=== PATIENT | female | born 1985 | race Hispanic/Latino ===

== ENCOUNTER 2021-10-04 08:58 | Outpatient (CLI) | payer SELFPAY ==
[2021-10-04 11:19] LABS: Hemoglobin 14.6 g/dL (12.0-15.5); Mean Corpuscular Hemoglobin 29.9 pg (27.0-33.0); Mean Corpuscular Volume 88.1 fl (81.6-98.3); Mean Platelet Volume 10.5 fl (7.4-10.4); Platelet Count 289 10x3/uL (150-450); Red Blood Cell (RBC) Count 4.88 10x6/uL (3.90-5.03); White Blood Cell (WBC) Count 8.3 10x3/uL (3.5-10.5)
[2021-10-04 12:08] LABS: BHCG - Serum Negative (NEGATIVE); Pregs Control Background? CLEAR/WHITE (CLR/WHITE); Pregs Control Bar Appear? YES (CONTROL BAR)
[2021-10-04 12:17] LABS: Anion Gap 14 mmol/L (10-20); BUN (Urea Nitrogen) 20 mg/dL (7.0-18.7); Calc. Creatinine Clearance 0 mL/min (70-130); Calcium 9.3 mg/dL (7.8-10.44); Carbon Dioxide 26 mmol/L (22-29); Chloride 100 mmol/L (98-107); Glucose 280 mg/dL (70-105); Potassium 4.2 mmol/L (3.5-5.1); Sodium 136 mmol/L (136-145)
[2021-10-04 23:06] LABS: SARS-CoV-2 PCR by NAA Not Detected (NotDetected)
== END 2021-10-04 08:59 | disposition home or self-care (01) ==
LOC: CSHLAB 08:58
PROVIDERS: ATTEND Student in an Organized Health Care Education/Training Program
DX: Z01.812 Encounter for preprocedural laboratory examination (principal); Z20.822 Contact with and (suspected) exposure to COVID-19; R19.00 Intra-abdominal and pelvic swelling, mass and lump, unspecified site; N91.2 Amenorrhea, unspecified
CPT/HCPCS: 80048; 84703; 85027; 86850; 86900; 86901; U0003; U0005

== ENCOUNTER 2021-10-09 10:48 | Day surgery (SDC) | payer OTHER, SELFPAY ==
[2021-10-04 09:15] VITALS: BMI 35.3
[2021-10-04 11:19] LABS: Hemoglobin 14.6 g/dL (12.0-15.5); Mean Corpuscular Hemoglobin 29.9 pg (27.0-33.0); Mean Corpuscular Volume 88.1 fl (81.6-98.3); Mean Platelet Volume 10.5 fl (7.4-10.4); Platelet Count 289 10x3/uL (150-450); Red Blood Cell (RBC) Count 4.88 10x6/uL (3.90-5.03); White Blood Cell (WBC) Count 8.3 10x3/uL (3.5-10.5)
[2021-10-04 12:08] LABS: BHCG - Serum Negative (NEGATIVE); Pregs Control Background? CLEAR/WHITE (CLR/WHITE); Pregs Control Bar Appear? YES (CONTROL BAR)
[2021-10-04 12:17] LABS: Anion Gap 14 mmol/L (10-20); BUN (Urea Nitrogen) 20 mg/dL (7.0-18.7); Calc. Creatinine Clearance 0 mL/min (70-130); Calcium 9.3 mg/dL (7.8-10.44); Carbon Dioxide 26 mmol/L (22-29); Chloride 100 mmol/L (98-107); Glucose 280 mg/dL (70-105); Potassium 4.2 mmol/L (3.5-5.1); Sodium 136 mmol/L (136-145)
[2021-10-04 23:06] LABS: SARS-CoV-2 PCR by NAA Not Detected (NotDetected)
[2021-10-09] MEDS ORDERED: CeleCOXIB 100 MG CAP ONE (11:13)
[2021-10-09] MEDS ORDERED: Gabapentin 300 MG CAP ONE (11:13)
[2021-10-09] MEDS ORDERED: Lidocaine 1% MPF 2 ML VIAL ONE (11:13)
[2021-10-09] MEDS ORDERED: Famotidine/PF 20 mg/2ml Vial ONE (11:14)
[2021-10-09] MEDS ORDERED: Insulin Regular 300 UNITS/3 ML VIAL ONE (11:49)
[2021-10-09] MEDS ORDERED: EPINEPHrine 1 MG/ML AMP ONE (12:02)
[2021-10-09] MEDS ORDERED: Bupivacaine PF 0.5% 30 ML VIAL ONE (12:02)
[2021-10-09] MEDS ORDERED: PROPOFOL 20 ML ONE (12:04)
[2021-10-09] MEDS ORDERED: Fentanyl 250 MCG/5 ML VIAL ONE (12:05)
[2021-10-09] MEDS ORDERED: Rocuronium Bromide 10 MG/ML (10ML VIAL) ONE (12:10)
[2021-10-09] MEDS ORDERED: Dexamethasone 4 mg/ml Vial ONE ×2 (12:10→12:56)
[2021-10-09] MEDS ORDERED: Ondansetron PF 4 MG/2 ML Vial ONE ×2 (12:10→12:56)
[2021-10-09] MEDS ORDERED: ceFAZolin 2 GM/Dextrose 50 ML IVPB ONE (12:24)
[2021-10-09] MEDS ORDERED: PHENYLEPHRINE-NS 100 MCG/ML 10 ML SYRINGE ONE (13:16)
[2021-10-09] MEDS ORDERED: hydrALAZINE 20 MG/ML VIAL ONE (14:04)
[2021-10-09] MEDS ORDERED: ePHEDrine Sulfate 50 MG/10 ML VIAL ONE (14:05)
== END 2021-10-09 16:45 | disposition home or self-care (01) ==
LOC: CSHSDC 10:48
PROVIDERS: ATTEND Student in an Organized Health Care Education/Training Program
PROC: 0UN98ZZ Release Uterus, Via Natural or Artificial Opening Endoscopic (ICD-10-PCS; principal; 2021-10-09)
PROC: 0UT64ZZ Resection of Left Fallopian Tube, Percutaneous Endoscopic Approach (ICD-10-PCS; principal; 2021-10-09)
PROC: 0UDB8ZX Extraction of Endometrium, Via Natural or Artificial Opening Endoscopic, Diagnostic (ICD-10-PCS; principal; 2021-10-09)
PROC: 0UT14ZZ Resection of Left Ovary, Percutaneous Endoscopic Approach (ICD-10-PCS; principal; 2021-10-09)
DX: D39.12 Neoplasm of uncertain behavior of left ovary (principal); Q51.28 Other and unspecified doubling of uterus; K66.0 Peritoneal adhesions (postprocedural) (postinfection); N70.11 Chronic salpingitis; N91.1 Secondary amenorrhea; L68.0 Hirsutism; E11.9 Type 2 diabetes mellitus without complications; E03.9 Hypothyroidism, unspecified; E66.9 Obesity, unspecified; Z68.35 Body mass index [BMI] 35.0-35.9, adult; Z79.4 Long term (current) use of insulin; Z79.890 Hormone replacement therapy; Z20.822 Contact with and (suspected) exposure to COVID-19
CPT/HCPCS: 36415; 36416; 80048; 84703; 85027; 86850; 86900; 86901; 88112; 88305; 88325; 88341; 88342; J0171; J0360; J0690; J1100; J1815; J2405; J2704; J3010; S0020; S0028; U0003; U0005